=== PATIENT | female | born 1950 | race Caucasian/White ===

== ENCOUNTER 2016-06-16 07:32 | Day surgery (SDC) | payer MEDICARE, BC ==
[2016-06-16] MEDS ORDERED: BUPIVACAINE 0.25% W/EPI MPF 30ML VIAL IVP ONE (13:45)
[2016-06-16] MEDS ORDERED: HYDROCODONE/APAP 7.5/325MG TABLET PO ONE (13:45)
[2016-06-16] MEDS ORDERED: PROPOFOL 10 MG/ML VIAL IV ONE (15:07)
[2016-06-16] MEDS ORDERED: FENTANYL PF 100MCG/2ML VIAL IV ONE (15:07)
[2016-06-16] MEDS ORDERED: METOCLOPRAMIDE HCL 10 MG/2 ML VIAL IVP ONE (15:07)
[2016-06-16] MEDS ORDERED: MIDAZOLAM HCL 2MG/2ML VIAL IV ONE (15:07)
[2016-06-16] MEDS ORDERED: ONDANSETRON HCL IV 4 MG/2 ML VIAL IVP ONE (15:07)
[2016-06-16] MEDS ORDERED: HYDROMORPHONE HCL 2 MG/ML VIAL IV ONE (15:07)
[2016-06-16] MEDS ORDERED: LIDOCAINE 2% MDV (20MG/ML) 20ML VIAL IV ONE (15:07)
--- NOTE | 2016-06-17 16:30 | Operative Note ---
DATE OF SURGERY: 06/16/2016 REFERRING PHYSICIAN: Enzo Stone DO PREOPERATIVE DIAGNOSES: 1. Torn medial meniscus of the right knee. 2. Chondromalacia of the right knee. 3. Synovitis, right knee. POSTOPERATIVE DIAGNOSES: 1. Torn medial meniscus of the right knee. 2. Chondromalacia medial femoral condyle and patella, right knee. 3. Medial midpatellar plica and synovitis, right knee (2 compartments). DESCRIPTION: This 65-year-old female was taken to the operating room and placed in the supine position on the operating room table where general anesthesia was induced. The right lower extremity was elevated. It was prepped with Hibiclens and draped in the usual sterile fashion. After exsanguination, tourniquet inflated to 300 mmHg, and application of the arthroscopic knee landeros. An inferolateral portal was established with a 4 mm arthroscopic and initial evaluation of the joint demonstrated normal appearance of the suprapatellar pouch, but the patient did have grade 3 chondromalacia of the patella, the median ridge and medial facet being more effected with grade 2 changes noted in the lateral facet. The trochlea, however, appeared to be normal. There was a hypertrophic, fibrotic medial midpatellar plica, which was resected through an inferior medial portal. The medial compartment was entered, and a radial tear of the medial meniscus was present at about the 11 o'clock position, which extended to within 2-3 mm from the meniscal synovial junction and then extended in a horizontal cleavage component to about the 1:30 to 2 o'clock position. Utilizing the basket forceps and rotating shaver, we resected back to the apex of the tear and then tapered in each direction to stabilize the remaining meniscus. It was reprobed and confirmed to be stable. There was grade 2 chondromalacia noted throughout the entire weightbearing surface of the medial femoral condyle, and chondroplasty was performed because of loose, fragmented, unstable fragments of the articular cartilage there. The intercondylar notch was examined and found to be normal. The lateral compartment was entered, and probing of the lateral meniscus and articular cartilage of the lateral compartment did not reveal any pathology. There was, however, synovitis in the medial compartment and intercondylar notch as well. The joint was copiously irrigated and suctioned after performing synovectomy to remove inflammatory or chronic fibrosis of the synovium. The joint was copiously irrigated and suctioned. The instruments were removed, the portals infiltrated with 0.25% Marcaine with epinephrine, sterile dressings applied, tourniquet and knee landeros released, and the patient taken to the recovery room in satisfactory condition. GROSS PATHOLOGY: This patient demonstrated a complex tear of the posterior horn of the medial meniscus with grade 2 chondromalacia noted throughout the entire weightbearing surface of the medial femoral condyle and grade 3 changes of the medial facet and 2 changes of the lateral facet of the patella. A medial midpatellar plica and synovitis was also present. CC: DO AWILDA Chance
== END 2016-06-16 10:35 | disposition home or self-care (01) ==
LOC: SUR 07:32
PROVIDERS: ATTEND Orthopaedic Surgery
DX: M23.203 Derangement of unspecified medial meniscus due to old tear or injury, right knee (principal); M94.261 Chondromalacia, right knee; M65.861 Other synovitis and tenosynovitis, right lower leg; E11.9 Type 2 diabetes mellitus without complications; Z79.4 Long term (current) use of insulin
CPT/HCPCS: 36416; 82948; 93005; 93010; 29881; 29876; 01400; J2405; J3010; J1170; J2765

== ENCOUNTER 2016-07-25 09:06 | Day surgery (SDC) | payer MEDICARE, BC ==
[2016-07-25] MEDS ORDERED: PROPOFOL 10 MG/ML VIAL IV ONE (15:42)
[2016-07-25] MEDS ORDERED: FENTANYL PF 100MCG/2ML VIAL IV ONE (15:42)
[2016-07-25] MEDS ORDERED: LABETALOL HCL 5MG/ML, 20ML VIAL SIVP ONE (15:42)
--- NOTE | 2016-07-26 15:50 | Operative Note ---
DATE OF SURGERY: 07/25/2016 OPERATION: ESOPHAGOGASTRODUODENOSCOPY with multiple biopsies. INDICATION: Previous history of B-cell gastric lipoma (MALToma). The patient returns at this time for surveillance. Clinically she is doing fairly well. She is unable to take medications such as histamine blockers or proton pump inhibitors, as it causes chest pain. She also has acid reflux. Previous pathology failed to demonstrate intestinal metaplasia at the GE junction. ANESTHESIA: Intravenous sedation was administered by the department of anesthesiology and included Diprivan titrated to effect. PROCEDURE: Following informed consent from this alert individual, including a discussion of the risks and benefits of the procedure and an opportunity for the patient to ask questions, the patient was placed in the left lateral decubitus position. The Olympus [id number] video endoscope was inserted into the esophagus without resistance. The proximal esophagus had a normal appearance with normal folds and distensibility. The mid and distal esophagus likewise was free from changes. There was a small hiatal hernia noted which was free from abnormalities. The subdiaphragmatic stomach was entered and found to be erythematous. The antrum was most intensely erythematous with gastritis. No ulcerations were noted. There were no masses noted. The pylorus was patent. The duodenal bulb, sweep, and descending duodenum were examined in a serial fashion and found to be normal. The endoscope was then drawn back into the body of the stomach. Retroflexion accomplished following air insufflation again revealed some mild gastritis in the proximal stomach. The endoscope was then straightened. Multiple biopsies were first taken from the antrum of the stomach. A second set of biopsies was then taken from the gastric fundus and body. The endoscope was then withdrawn back through the esophagus and removed. The patient tolerated the procedure well and was returned to the recovery area in stable condition. IMPRESSION: 1. Small hiatal hernia. 2. Gastritis as described above. Biopsies taken. RECOMMENDATION: Further recommendations will be forthcoming pending results of pathology obtained today. Would recommend recheck endoscopy in 1 year's time for surveillance, which was recommended by Oncology previously. Followup will be with Dr. Gabriele Stone. As always, thank you for allowing me to participate in the care of your patient. Sterling Woodward DO CC: Dr. Gabriele [facility]
== END 2016-07-25 11:34 | disposition home or self-care (01) ==
LOC: HOP 09:06
PROVIDERS: ATTEND Internal Medicine Gastroenterology
DX: K29.50 Unspecified chronic gastritis without bleeding (principal); K44.9 Diaphragmatic hernia without obstruction or gangrene; Z85.72 Personal history of non-Hodgkin lymphomas; K22.70 Barrett's esophagus without dysplasia; E11.9 Type 2 diabetes mellitus without complications; Z79.4 Long term (current) use of insulin
CPT/HCPCS: 43239; 00740; 88305; J3010

== ENCOUNTER 2017-01-02 06:44 | Day surgery (SDC) | payer MEDICARE, BC ==
[2017-01-02] MEDS ORDERED: LIDOCAINE 2% MDV (20MG/ML) 20ML VIAL IV ONE (06:45)
[2017-01-02] MEDS ORDERED: SEVOFLURANE 250 ML INH ONE (06:45)
[2017-01-02] MEDS ORDERED: PROPOFOL 10 MG/ML VIAL IV ONE (06:45)
--- NOTE | 2017-01-02 15:01 | Operative Note ---
DATE OF SURGERY: 01/02/2017 PREOPERATIVE DIAGNOSIS: Postmenopausal bleeding. POSTOPERATIVE DIAGNOSIS: Postmenopausal bleeding. OPERATION: Diagnostic hysteroscopy and D&C with polyp removal. PHYSICIAN: Mary Cline DO Anesthesia: General. COMPLICATIONS: None. Estimated Blood Loss: Minimal. PROCEDURE: The patient was prepped for surgery and brought back to the operative suite. She was placed under general anesthesia. She was sterilely prepped and draped in the dorsal lithotomy position. A weighted speculum was placed in the vaginal vault. 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 The cervix was serially dilated to 18-Lithuanian. The hysteroscope was then placed. A small polyp was noted in the anterior aspect of the uterus. An incisor blade was placed through the scope. The polyp was shaved off. The hysteroscope was then removed. Curettings were obtained. The tenaculum was removed. No bleeding was noted. The patient was then awoken from general anesthesia and brought back to recovery room in satisfactory condition. AWILDA
== END 2017-01-02 09:33 | disposition home or self-care (01) ==
LOC: SUR 06:44
PROVIDERS: ATTEND Obstetrics & Gynecology
DX: N85.01 Benign endometrial hyperplasia (principal); E11.9 Type 2 diabetes mellitus without complications; Z79.4 Long term (current) use of insulin

== ENCOUNTER 2017-01-27 08:05 | Emergency (ER) | payer MEDICARE, BC ==
--- NOTE | 2017-01-27 08:18 | Emergency Department Record ---
History of Present Illness - General Chief complaint: Female Urogenital Problem Stated complaint: UTI Time Seen by Provider: 01/27/17 08:17 Source: Patient Mode of Arrival: Ambulatory Limitations: No limitations - History of Present Illness Initial comments: The patient is here due to a one day hx of dysuria. She denies any new pain, fever, chills, nausea, vomiting, or diarrhea. The patient states she has chronic abdominal pain and that is no different now. She states she is only here due to the burning with urination that is new. MD Complaint: Dysuria Onset/Timin -: Days(s) Severity scale (1-10): 10 Quality: Burning Consistency: Constant Improves with: None Worsens with: Urination Patient : No Associated Symptoms: Abdominal pain (Chronic per the patient.) - Related Data Previous Rx's Medication Instructions Recorded Phenazopyridine HCl [Pyridium] 100 mg PO TID #6 tablet 01/27/17 Sulfamethoxazole/Trimethoprim 1 tab PO BID #10 tab 01/27/17 [Bactrim Ds] Allergies Allergy/AdvReac Type Severity Reaction Status Date / Time acetaminophen [From Tylenol] AdvReac URINARY Verified 10/25/15 17:49 TRACT INFECTION acetazolamide AdvReac NAUSEA Verified 10/25/15 17:49 [From Diamox Sequels] amitriptyline HCl AdvReac PT UNSURE Verified 10/25/15 17:49 [From Elavil] OF REACTION amoxicillin trihydrate AdvReac URINARY Verified 10/25/15 17:49 [From Augmentin] TRACT INFECTION colloidal bismuth subcitrate AdvReac RAPID Verified 10/25/15 17:49 [From Pylera] HEART RATE cyclobenzaprine HCl AdvReac NAUSEA Verified 10/25/15 17:49 [From Flexeril] dicyclomine HCl [From Bentyl] AdvReac TACHYCARDIA Verified 10/25/15 17:49 gabapentin [From Neurontin] AdvReac NEUROTOXICI Verified 10/25/15 17:49 TY ibuprofen [From Motrin] AdvReac NAUSEA AND Verified 10/25/15 17:49 VOMITING lansoprazole [From Prevacid] AdvReac CHEST PAIN Verified 10/25/15 17:49 lisinopril AdvReac RAPID Verified 10/25/15 17:49 HEART RATE metronidazole [From Pylera] AdvReac RAPID Verified 10/25/15 17:49 HEART RATE nitrofurantoin AdvReac URINARY Verified 10/25/15 17:49 [From Macrobid] TRACT INFECTION nitrofurantoin AdvReac URINARY Verified 10/25/15 17:49 macrocrystalline TRACT [From Macrobid] INFECTION omeprazole [From Prilosec] AdvReac CHEST PAIN Verified 10/25/15 17:49 omeprazole magnesium AdvReac CHEST PAIN Verified 10/25/15 17:49 [From Prilosec] potassium clavulanate AdvReac URINARY Verified 10/25/15 17:49 [From Augmentin] TRACT INFECTION prednisone AdvReac BEHAVIORAL Verified 10/25/15 17:49 CHANGES psyllium AdvReac CHEST PAIN Verified 10/25/15 17:49 tetracycline HCl AdvReac RAPID Verified 10/25/15 17:49 [From Pylera] HEART RATE Travel Screening - Travel/Exposure Within Last 30 Days Have you traveled within the last 30 days?: No Review of Systems Constitutional: Denies: Chills, Fever, Malaise Eyes: Denies: Eye discharge ENT: Denies: Congestion Respiratory: Denies: Cough, Dyspnea Cardiovascular: Denies: Chest pain Past Medical History - SOCIAL HISTORY Smoking Status: Former smoker Alcohol Use: None Drug Use: None - RESPIRATORY Hx Respiratory Disorders: Yes Hx Sleep Apnea: Yes Hx of CPAP: No Comment:: sarcoidosis - CARDIOVASCULAR Hx Cardio Disorders: Yes Hx Chest Pain: Yes (with "alot of medications"-sees Dr Alexander) Hx Edema: Yes (both ankles, rt worse) Hx Irregular Heartbeat: Yes ("distolic dysfunction") - NEURO Hx Neuro Disorders: Yes 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) Hx Headaches: Yes (daily rest helps) Hx Neuropathy: Yes (legs r/t dm) - GI Hx GI Disorders: Yes Hx Nausea/Vomiting: Yes (denies vomiting with this) Hx Wt Loss/Wt Gain: Yes (gain 20lbs since January 2016) Comment:: Hx Barretts/ had gastric lymphoma 2007 - Hx Genitourinary Disorders: Yes Hx Bladder Problem: Yes (urinary frequency) - ENDOCRINE Hx Endocrine Disorders: Yes Hx Diabetes: Yes (since 1985) Comment:: last accucheck 119 today - MUSCULOSKELETAL Hx Musculoskeletal Disorders: Yes Hx Arthritis: Yes (back) - PSYCH Hx Psych Problems: Yes Hx Depression: Yes (possibly) - HEMATOLOGY/ONCOLOGY Hx Hematology/Oncology Disorders: Yes Hx Cancer: Yes (gastric lymphoma) Hx Radiation Therapy: Yes (2007) Comment:: remission since 2007 Family Medical History Any Significant Family History?: Yes Hx Cancer: Brother/Sister Hx Diabetes: Father Hx Heart Disease: Mother Hx HTN: Mother Hx Seizures: Children *Seizure Comment: daughter Physical Exam - General General Appearance: Alert, Oriented x3, Cooperative, No acute distress - Head Head exam: Atraumatic, Normocephalic, Normal inspection - Eye Eye exam: Normal appearance, PERRL - Neck Neck exam: Normal inspection, Full ROM. negative: Tenderness - Respiratory Respiratory exam: Normal lung sounds bilaterally. negative: Respiratory distress - Cardiovascular Cardiovascular Exam: Regular rate, Normal rhythm, Normal heart sounds - GI/Abdominal GI/Abdominal exam: Soft, Normal bowel sounds, Tenderness (There is mild lower abdominal tenderness but the patient and daughter both state that is normal for her.). negative: Guarding, Hernia, Rebound, Rigid - Extremities Extremities exam: Normal inspection, Full ROM, Normal capillary refill. negative: Tenderness Course Vital Signs 01/27/17 01/27/17 08:07 08:16 Temperature 97.5 F L Pulse Rate [ 88 Pulse Ox Probe] Respiratory 16 Rate Blood Pressure 125/57 [Right Arm] Pulse Ox 92 L - Reevaluation(s) Reevaluation #1: The patient is doing well. I did discuss the issues with her chronic abdominal pain and the fact she feels it may be slightly worse now. Due to that fact I did recommend an IV, lab work and a CT of her abdomen. She is refusing those tests and only wants the Abx for the UTI. I explained to her that she could have a significant intra-abdominal process which could lead to a surgical abdomen, disability, and chronic pain. By NOT doing the testing we could NOT be held liable for not diagnosing her condition. She presently has proper decision making capacity and is persistently refusing the testing. She states she will return if the Abx does not improve her condition. 01/27/17 08:54 Disposition Disposition: Discharge Clinical Impression: Cystitis Disposition: Home, Self-Care Condition: (2) Stable Instructions: Urinary Tract Infection in Women (ED) Additional Instructions: Please take the Bactrim and Pyridium as directed. Please see your PCP if not better in 3 days. Return to the ER for any increasing pain, fever, or vomiting. Prescriptions: Phenazopyridine HCl [Pyridium] 100 mg PO TID #6 tablet Sulfamethoxazole/Trimethoprim [Bactrim Ds] 1 tab PO BID #10 tab Forms: Patient Portal Access Time of Disposition: 08:51 Quality - Quality Measures Quality Measures: N/A - Blood Pressure Screening View Details: Yes Does Patient Have Any of the Following: No Blood Pressure Classification: Pre-Hypertensive BP Reading Systolic Measurement: 125 Diastolic Measurement: 57 Screening for High Blood Pressure: < Pre-Hypertensive BP, F/U Documented > [ [id number]] Pre-Hypertensive Follow-up Interventions: Referral to alternative/primary care provider.
[2017-01-27 08:24] LABS: URINE BILIRUBIN NEGATIVE (NEGATIVE); URINE BLOOD TRACE-I (NEGATIVE); URINE COLOR YELLOW; URINE GLUCOSE (UA) NEGATIVE (NEGATIVE); URINE KETONE NEGATIVE (NEGATIVE); URINE LEUKOCYTE ESTERASE SMALL (NEGATIVE); URINE NITRITE NEGATIVE (NEGATIVE); URINE PROTEIN TRACE (NEGATIVE); URINE UROBILINOGEN 0.2 E.U./dL (0.20 - 1.00)
[2017-01-27 08:33] LABS: URINE APPEARANCE SL CLOUDY
[2017-01-27 08:34] LABS: URINE SQUAMOUS EPITHELIAL CELL 0 - 2 /hpf; URINE WBC 16 - 20 (0-2/hpf)
[2017-01-27 08:35] LABS: URINE AMORPHOUS SEDIMENT 1+; URINE BACTERIA 2+
== END 2017-01-27 08:57 | disposition home or self-care (01) ==
LOC: ER 08:05
DX: N30.90 Cystitis, unspecified without hematuria (principal)
CPT/HCPCS: 81001; 99282

== ENCOUNTER 2017-08-07 08:38 | Day surgery (SDC) | payer MEDICARE, BC ==
[2017-08-07] MEDS ORDERED: PROPOFOL 10 MG/ML VIAL IV ONE (08:39)
[2017-08-07] MEDS ORDERED: LIDOCAINE 2% MDV (20MG/ML) 20ML VIAL IV ONE (08:39)
--- NOTE | 2017-08-07 14:40 | Operative Note ---
DATE OF SURGERY: 08/07/2017 OPERATION: COLONOSCOPY to the cecum. INDICATION: Colorectal cancer screening. ANESTHESIA: Intravenous sedation was administered by the department of anesthesiology and included Diprivan titrated to effect. PROCEDURE: Following informed consent from this alert individual including a discussion of the risks and benefits of the procedure and an opportunity for the patient to ask questions, the patient was in the left lateral decubitus position. A digital rectal examination was performed. No abnormalities were noted. Following this, the Olympus [id number] video colonoscope was inserted into the rectum without resistance. The rectal mucosa had a normal appearance with normal folds and distensibility. The colonoscope was advanced up through the colon to the level of the cecum without much difficulty. Throughout the bowel the mucosa appeared normal, the folds were normal, and the bowel was fairly well distensible. The cecum was defined by noting the appendiceal orifice and ileocecal valve. Retroflexion in the cecum was endoscopically unremarkable. The colon preparation was good. From the base of the cecum, the colonoscope was then withdrawn back. No changes were noted except for the sigmoid colon where a few small diverticula were noted. No other abnormalities were detected. Retroflexion in the rectum was endoscopically unremarkable. The endoscope was straightened and removed. The patient tolerated the procedure well and was returned to the recovery area in stable condition. IMPRESSION: 1. Mild sigmoid diverticulosis. 2. Otherwise unremarkable colonoscopy to the cecum. RECOMMENDATIONS: The patient was advised to have recheck colonoscopy in 10 years' time or sooner should problems arise. Followup will be with Dr. Burnett and Dr. Stone. As always, thank you for allowing me to participate in the care of your patient. CC: DO AWILDA Frederick
--- NOTE | 2017-08-07 14:40 | Operative Note ---
DATE OF SURGERY: 08/07/2017 OPERATION: ESOPHAGOGASTRODUODENOSCOPY with multiple biopsies. INDICATION: History of gastric MALTtoma. The patient returns at this time for surveillance. ANESTHESIA: Intravenous sedation was administered by the department of anesthesiology and included Diprivan titrated to effect. PROCEDURE: Following informed consent from this alert individual, including a discussion of the risks and benefits of the procedure and an opportunity for the patient to ask questions, the patient was in the left lateral decubitus position. The Olympus [id number] video endoscope was inserted into the esophagus without resistance. The proximal esophagus had a normal appearance with normal folds and distensibility. The mid and distal esophagus likewise was free from changes. There was a small sliding-type hiatal hernia noted but no mucosal abnormalities detected. The stomach was entered. There was diffuse mild gastritis noted but no ulcers, erosions, or raised mucosa was appreciated. Multiple biopsies were taken from throughout the stomach, both the antrum and the proximal stomach. The pylorus was symmetrical and patent. The duodenal bulb, sweep and descending duodenum were examined in a serial fashion and found to be normal. The endoscope was then withdrawn back into the body of the stomach where retroflexion accomplished following air insufflation failed to demonstrate any additional changes. The endoscope was then straightened and withdrawn through a normal esophagus and removed from the patient. She tolerated the procedure well and was returned to the recovery area in stable condition. IMPRESSION: 1. Diffuse mild gastritis, biopsies taken. 2. Small hiatal hernia. RECOMMENDATION: Further recommendations will be forthcoming pending results of biopsy obtained today. Followup will also be with Dr. Burnett and Dr. Garcia. As always, thank you for allowing me to participate in the care of your patient. CC: Dr. Lex Stone, DO [facility]
== END 2017-08-07 10:38 | disposition home or self-care (01) ==
LOC: HOP 08:38
PROVIDERS: ATTEND Internal Medicine Gastroenterology
DX: Z12.11 Encounter for screening for malignant neoplasm of colon (principal); K57.30 Diverticulosis of large intestine without perforation or abscess without bleeding; K29.70 Gastritis, unspecified, without bleeding; E11.9 Type 2 diabetes mellitus without complications; Z79.4 Long term (current) use of insulin; Z85.028 Personal history of other malignant neoplasm of stomach; K44.9 Diaphragmatic hernia without obstruction or gangrene
CPT/HCPCS: 00813; 43235; G0121

== ENCOUNTER 2019-03-21 07:38 | Day surgery (SDC) | payer MEDICARE, BC ==
[2019-03-21] MEDS ORDERED: PROPOFOL 10 MG/ML VIAL IV ONE (07:39)
[2019-03-21] MEDS ORDERED: LIDOCAINE 2% MDV (20MG/ML) 20ML VIAL IV ONE (07:39)
[2019-03-21] MEDS ORDERED: 0.9 % SODIUM CHLORIDE 1000ML 500 ML IV ONE (08:26)
[2019-03-21] MEDS ORDERED: LIDOCAINE 2% MDV (20MG/ML) 20ML VIAL INJ ONE (09:29)
[2019-03-21] MEDS ORDERED: TETRACAINE HCL 0.5% OPTH 2ML SOLU OPTH ONE (09:29)
[2019-03-21] MEDS ORDERED: LIDOCAINE 1% MPF 100MG/10ML STERILE-PAK AMPULE SQ ONE (09:30)
[2019-03-21] MEDS ORDERED: TIMOLOL MALEATE 0.5% 5ML BTL OPTH ONE (09:30)
[2019-03-21] MEDS ORDERED: EPINEPHRINE 1 MG/ML AMPUL IO ONE (09:30)
[2019-03-21] MEDS ORDERED: BRIMONIDINE TARTRATE 0.2% OPTHALMIC DROPS OP ONE (09:30)
[2019-03-21] MEDS ORDERED: NEOM/BACI/POLY/HC 3.5 GM OPTH OINT OPTH ONE (09:30)
[2019-03-21] MEDS ORDERED: TETRACAINE HCL 0.5% 15 ML OPTH BTL OPTH ONE (09:31)
--- NOTE | 2019-03-22 09:23 | OP NOTE CHAMES ---
DATE OF PROCEDURE: 03/21/2019 PREOPERATIVE DIAGNOSIS: Nuclear sclerotic and cortical cataract, right eye. POSTOPERATIVE DIAGNOSIS: Nuclear sclerotic and cortical cataract, right eye. OPERATION: Phacoemulsification of cataractous lens with implantation of intraocular lens. LENS IMPLANT USED: Sanchez & Sanchez Model PCB00 + 21.5 diopters. COMPLICATIONS: None. PROCEDURE IN DETAIL: Following a retrobulbar and facial block, the patient was prepped and draped in the usual fashion for eye surgery. A lid speculum was placed in the right eye after which a 2.4 mm tunnel wound was placed at the temporal limbus and dissected into clear cornea. A paracentesis was placed at 2 oclock hours to the left and right of the initial incision and the chamber deepened with Viscoelastic. The keratome was then used to enter the anterior chamber after which the continuous circular capsulorrhexis was accomplished without difficulty using a bent needle and a Utrata forceps. Hydrodissection and hydrodelineation of the lens was performed after which the nucleus of the lens was removed using the Phaco handpiece in the [id number] technique. The residual cortical material was irrigated and aspirated from the eye after which the bag and chamber were re-examined. The bag was re-inflated with Viscoelastic and the intraocular lens injected into the capsular bag where it centered well. The Viscoelastic was then copiously irrigated and aspirated from the eye after which the temporal tunnel wound and paracentesis were hydrated and the wounds were examined. They were noted to be watertight. The lid speculum was removed from the eye and the eye patched and shielded. The patient was transferred to the recovery room in satisfactory condition and given an appointment to be reexamined in the clinic later today or as directed by Dr. Felix. JOB NUMBER: [id number] [facility]
== END 2019-03-21 10:19 | disposition home or self-care (01) ==
LOC: SUR 07:38
PROVIDERS: ATTEND Ophthalmology
DX: H25.11 Age-related nuclear cataract, right eye (principal); E11.9 Type 2 diabetes mellitus without complications; Z79.4 Long term (current) use of insulin; I50.9 Heart failure, unspecified
CPT/HCPCS: J0171; J3490; J7030

== ENCOUNTER 2019-04-04 07:26 | Day surgery (SDC) | payer MEDICARE, BC ==
[2019-04-04] MEDS ORDERED: PROPOFOL 10 MG/ML VIAL IV ONE (07:27)
[2019-04-04] MEDS ORDERED: LIDOCAINE 2% MDV (20MG/ML) 20ML VIAL IV ONE (07:27)
[2019-04-04] MEDS ORDERED: 0.9 % SODIUM CHLORIDE 1000ML 1,000 ML IV ONE (07:52)
[2019-04-04] MEDS ORDERED: NEOM/BACI/POLY/HC 3.5 GM OPTH OINT OPTH ONE (09:18)
[2019-04-04] MEDS ORDERED: TETRACAINE HCL 0.5% OPTH 2ML SOLU OPTH ONE (09:18)
[2019-04-04] MEDS ORDERED: EPINEPHRINE 1 MG/ML AMPUL IO ONE (09:18)
[2019-04-04] MEDS ORDERED: BRIMONIDINE TARTRATE 0.2% OPTHALMIC DROPS OP ONE (09:18)
[2019-04-04] MEDS ORDERED: TIMOLOL MALEATE 0.5% 5ML BTL OPTH ONE (09:18)
[2019-04-04] MEDS ORDERED: LIDOCAINE 2% MDV (20MG/ML) 20ML VIAL INJ ONE (09:19)
[2019-04-04] MEDS ORDERED: CIPROFLOXACIN HCL 0.0015 GM, PHENYLEPHRINE HCL 0.05 GM, KETOROLAC TROMETHAMINE 0.000625 GM MC ONE ×5 (14:30)
--- NOTE | 2019-04-05 07:11 | OP NOTE CHAMES ---
DATE OF PROCEDURE: 04/04/2019 PREOPERATIVE DIAGNOSIS: Nuclear sclerotic cataract, left eye. POSTOPERATIVE DIAGNOSIS: Nuclear sclerotic cataract, left eye. OPERATION: Phacoemulsification of cataractous lens with implantation of intraocular lens. LENS IMPLANT USED: Sanchez & Sanchez Model PCB00 + 21.5 diopters. COMPLICATIONS: None. PROCEDURE IN DETAIL: Following a retrobulbar and facial block, the patient was prepped and draped in the usual fashion for eye surgery. A lid speculum was placed in the left eye after which a 2.4 mm tunnel wound was placed at the temporal limbus and dissected into clear cornea. A paracentesis was placed at 2 oclock hours to the left and right of the initial incision and the chamber deepened with Viscoelastic. The keratome was then used to enter the anterior chamber after which the continuous circular capsulorrhexis was accomplished without difficulty using a bent needle and a Utrata forceps. Hydrodissection and hydrodelineation of the lens was performed after which the nucleus of the lens was removed using the Phaco handpiece in the [id number] technique. The residual cortical material was irrigated and aspirated from the eye after which the bag and chamber were re-examined. The bag was re-inflated with Viscoelastic and the intraocular lens injected into the capsular bag where it centered well. The Viscoelastic was then copiously irrigated and aspirated from the eye after which the temporal tunnel wound and paracentesis were hydrated and the wounds were examined. They were noted to be watertight. The lid speculum was removed from the eye and the eye patched and shielded. The patient was transferred to the recovery room in satisfactory condition and given an appointment to be reexamined in the clinic later today or as directed by Dr. Felix. JOB NUMBER: [id number] [facility]
== END 2019-04-04 10:00 | disposition home or self-care (01) ==
LOC: SUR 07:26
PROVIDERS: ATTEND Ophthalmology
DX: H25.12 Age-related nuclear cataract, left eye (principal); E11.9 Type 2 diabetes mellitus without complications; Z79.4 Long term (current) use of insulin; I50.9 Heart failure, unspecified; I25.10 Atherosclerotic heart disease of native coronary artery without angina pectoris
CPT/HCPCS: J0171; J7030

== ENCOUNTER 2019-05-05 14:04 | Emergency (ER) | payer MEDICARE, BC ==
[2019-05-05] MEDS ORDERED: 0.9 % SODIUM CHLORIDE 1,000 ML BAG IV ONE (14:32)
--- NOTE | 2019-05-05 14:36 | Emergency Department Record ---
History of Present Illness - General Chief Complaint: Abdominal Pain Stated Complaint: ABD PAIN/CONSTIPATION Time Seen by Provider: 05/05/19 14:26 Source: Patient Mode of Arrival: Ambulatory Limitations: No limitations - History of Present Illness Initial Comments: The patient is here due to diffuse abdominal pain with constipation for almost 2 weeks. The pain is all over. The patient denies any fever, chills, nausea or vomiting. She did try an enema with no results. 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 MD Complaint: Abdominal pain Onset/Timin -: Days(s) Location: Diffuse Radiation: None Migration to: No migration Severity scale (1-10): 8 Quality: Fullness Consistency: Constant Improves With: Nothing Worsens With: Nothing Associated Symptoms: Constipation - Related Data Patient : No Hx Age of Menopause: 52 Home Medications Medication Instructions Recorded Confirmed Last Taken Vit C/Vit E AC/Lut/Copper/Zinc 1 tab PO DAILY 05/05/19 05/05/19 Unknown [PreserVision Lutein Softgel] Vitamin B Complex/Folic Acid [B 0.4 mg PO DAILY 05/05/19 05/05/19 Unknown Complex Formula #1 Tablet] Allergies Allergy/AdvReac Type Severity Reaction Status Date / Time acetaminophen [From Tylenol] AdvReac URINARY Verified 05/05/19 14:22 TRACT INFECTION acetazolamide AdvReac NAUSEA Verified 05/05/19 14:22 [From Diamox Sequels] amitriptyline HCl AdvReac PT UNSURE Verified 05/05/19 14:22 [From Elavil] OF REACTION amoxicillin trihydrate AdvReac URINARY Verified 05/05/19 14:22 [From Augmentin] TRACT INFECTION colloidal bismuth subcitrate AdvReac RAPID Verified 05/05/19 14:22 [From Pylera] HEART RATE cyclobenzaprine HCl AdvReac NAUSEA Verified 05/05/19 14:22 [From Flexeril] dicyclomine HCl [From Bentyl] AdvReac TACHYCARDIA Verified 05/05/19 14:22 gabapentin [From Neurontin] AdvReac NEUROTOXICI Verified 05/05/19 14:22 TY ibuprofen [From Motrin] AdvReac NAUSEA AND Verified 05/05/19 14:22 VOMITING lansoprazole [From Prevacid] AdvReac CHEST PAIN Verified 05/05/19 14:22 lisinopril AdvReac RAPID Verified 05/05/19 14:22 HEART RATE metronidazole [From Pylera] AdvReac RAPID Verified 05/05/19 14:22 HEART RATE nitrofurantoin AdvReac URINARY Verified 05/05/19 14:22 [From Macrobid] TRACT INFECTION nitrofurantoin AdvReac URINARY Verified 05/05/19 14:22 macrocrystalline TRACT [From Macrobid] INFECTION omeprazole [From Prilosec] AdvReac CHEST PAIN Verified 05/05/19 14:22 omeprazole magnesium AdvReac CHEST PAIN Verified 05/05/19 14:22 [From Prilosec] potassium clavulanate AdvReac URINARY Verified 05/05/19 14:22 [From Augmentin] TRACT INFECTION prednisone AdvReac BEHAVIORAL Verified 05/05/19 14:22 CHANGES psyllium AdvReac CHEST PAIN Verified 05/05/19 14:22 tetracycline HCl AdvReac RAPID Verified 05/05/19 14:22 [From Pylera] HEART RATE Travel/Exposure Screening - Travel/Exposure Within Last 30 Days Have you traveled within the last 30 days?: No - Additonal Travel/Exposure Details Have you been exposed to anyone with a communicable illness?: No Review of Systems Constitutional: Denies: Chills, Fever Eyes: Denies: Eye discharge ENT: Denies: Congestion Respiratory: Denies: Cough, Dyspnea Cardiovascular: Denies: Chest pain Endocrine: Denies: Fatigue Gastrointestinal: Reports: Abdominal pain. Denies: Nausea Genitourinary: Denies: Dysuria Musculoskeletal: Denies: Arthralgia Skin: Denies: Bruising Past Medical History - SOCIAL HISTORY Smoking Status: Former smoker - RESPIRATORY Hx Respiratory Disorders: Yes Hx Sleep Apnea: Yes Hx of CPAP: No Comment:: sarcoidosis - CARDIOVASCULAR Hx Cardio Disorders: Yes Hx CHF: Yes ("DIASTOLIC DYSFUNCTION") Hx Edema: Yes (FEET AND ANKLES AT TIMES) Hx Irregular Heartbeat: No - NEURO Hx Neuro Disorders: Yes Hx Brain Tumor: Yes (PSEUDO TUMOR ?) Hx Dizziness: Yes (AT TIMES) Hx Headaches: Yes (DAILY) Hx Neuropathy: Yes (LE'S) - GI Hx GI Disorders: Yes Hx Abdominal Pain: Yes Hx Reflux: Yes (USES MYLANTA AND/OR BAKING SODA) Hx Nausea/Vomiting: No (DENIES) Hx Wt Loss/Wt Gain: Yes (GAINS WEIGHT EASILY) Comment:: Hx Barretts/ had gastric lymphoma 2007 - Hx Genitourinary Disorders: Yes Hx UTI: Yes (HX OF) - ENDOCRINE Hx Endocrine Disorders: Yes Hx Diabetes: Yes (DX'D 1985) Comment:: BLOOD SUGARS 90-120 FASTINGS - MUSCULOSKELETAL Hx Musculoskeletal Disorders: Yes Hx Arthritis: Yes Hx Fibromyalgia: Yes - PSYCH Hx Psych Problems: No Hx Depression: (DENIES) - HEMATOLOGY/ONCOLOGY Hx Hematology/Oncology Disorders: Yes Hx Cancer: Yes (gastric lymphoma) Hx Radiation Therapy: Yes (2007) Comment:: remission since 2007 Family Medical History Any Significant Family History?: Yes Hx Cancer: Brother/Sister Hx Diabetes: Father Hx Heart Disease: Mother Hx HTN: Mother Hx Seizures: Children *Seizure Comment: daughter Physical Exam - General General Appearance: Alert, Oriented x3, Cooperative, No acute distress - Head Head exam: Atraumatic, Normocephalic - Eye Eye exam: Normal appearance - ENT Throat exam: Normal inspection. negative: Tonsillar erythema, Tonsillar exudate - Neck Neck exam: Normal inspection, Full ROM. negative: Tenderness - Respiratory Respiratory exam: Normal lung sounds bilaterally. negative: Respiratory distress - Cardiovascular Cardiovascular Exam: Regular rate, Normal rhythm, Normal heart sounds - GI/Abdominal GI/Abdominal exam: Soft, Normal bowel sounds, Tenderness (There is diffuse mild upper abdominal tenderness.). negative: Rebound, Rigid - Extremities Extremities exam: Normal inspection, Full ROM, Normal capillary refill. negative: Tenderness Course Vital Signs 05/05/19 14:25 Temperature 98.0 F Pulse Rate [ 99 H Pulse Ox Probe] Respiratory 20 Rate Blood Pressure 163/57 [Left Arm] Pulse Ox 94 L - Reevaluation(s) Reevaluation #1: The patient is doing better at this time and did have some stool output with the enema. She is having no nausea or vomiting. On exam her abdomen is soft with mild diffuse upper abdominal tenderness. I did discuss the lab and CT reports that basically do not demonstrate any reason for the pain. The CT is basically normal at this time along with the lab work. The patient does have an appointment with Dr. Woodward (GI) in the morning and is encouraged to keep it. I did offer to give the patient some IV pain medicine like Toradol or Ofirmiv but she refused and states pain medicines do not agree with her. We will give her a bottle of Mg Citrate for home and she is to drink it tonight for the laxative effect. 05/05/19 17:14 Medical Decision Making - Data Complexity MDM Data: Labs Ordered and/or Reviewed, X-Ray Ordered and/or Reviewed - Lab Data Result diagrams: 05/05/19 15:00 05/05/19 15:00 - Radiology Data Radiology results: Report reviewed (CT: neg for any acute changes. Possible wall thickening vs underdistension of the colon, Rec Colonoscopy.) Disposition Disposition: Discharge Clinical Impression: Abdominal pain Qualifiers: Abdominal location: upper abdomen, unspecified Qualified Code(s): R10.10 - Upper abdominal pain, unspecified Disposition: Home, Self-Care Condition: (2) Stable Instructions: Abdominal Pain (ED) Additional Instructions: Please use your home pain medicines as needed and please drink the Mg Citrate tonight as directed. Please keep your appointment with Dr. Woodward for the morning. Return to the ER sooner for any worsening issues. Forms: Patient Portal Access Time of Disposition: 17:19 Quality - Quality Measures Quality Measures: N/A - Blood Pressure Screening View Details: Yes Does Patient Have Any of the Following: No Blood Pressure Classification: Pre-Hypertensive BP Reading Systolic Measurement: 123 Diastolic Measurement: 58 Screening for High Blood Pressure: < Pre-Hypertensive BP, F/U Documented > [[id number]] Pre-Hypertensive Follow-up Interventions: Referral to alternative/primary care provider.
[2019-05-05 15:10] LABS: ABSOLUTE NEUTROPHIL COUNT 4.33; BASO % 0.5 % (0-6); EOS % 2.1 % (0-6); HEMOGLOBIN 13.5 gm/dl (11.6-16.0); LYMPH % 25.8 % (16-45); MEAN CELL VOLUME 98.9 fl (81-97); MEAN CORPUSCULAR HGB CONC 31.4 g/dl (32-36); MEAN PLATELET VOLUME 10.8 fl (7.4-10.4); MONO % 5.6 % (0-9); PLATELET COUNT 250 K/uL (130-400); RED BLOOD COUNT 4.35 M/uL (3.80-5.40); RED CELL DISTRIBUTION WIDTH 13.4 % (11.5-14.5); WHITE BLOOD COUNT W/O DIFF 6.6 K/uL (4.2-12.2)
[2019-05-05 15:24] LABS: BLOOD UREA NITROGEN 12 mg/dL (8-23); CREATININE 0.6 mg/dL (0.5-0.9); EST GLOMERULAR FILTRATION RATE > 60 mL/min; LIPASE 13 U/L (13-60); TOTAL PROTEIN 7.1 g/dL (6.6-8.7)
[2019-05-05 15:26] LABS: GLUCOSE,RANDOM 178 mg/dL (74-109)
[2019-05-05 15:29] LABS: ALBUMIN 3.8 g/dL (4.0-5.0); ALKALINE PHOSPHATASE 114 U/L (35-104); ALT/SGPT 12 U/L (<33); AST/SGOT 16 U/L (10.0-35.0)
[2019-05-05 15:31] LABS: BILIRUBIN,DIRECT < 0.2 mg/dL (0-0.3)
--- NOTE | 2019-05-05 16:54 | CT SCAN REPORT ---
EXAMINATION: CT Abdomen and Pelvis with IV Contrast EXAM DATE: 05/05/2019 4:21 PM TECHNIQUE: CT imaging of the abdomen and pelvis was performed with intravenous contrast. Coronal and sagittal images were reconstructed. IV Contrast: The amount and type of contrast are recorded in the medical record. INDICATION: Upper AP COMPARISON: AP CT 06/07/2018 ENCOUNTER: Not applicable CT ABDOMEN AND PELVIS FINDINGS: Lung Bases: Included extent of the lung bases are clear. Hepatobiliary: The liver has a normal size with a smooth surface. The hepatic and portal veins appear patent. The gallbladder is absent. There is no biliary dilatation. Pancreas: The pancreas is normal. Spleen: The spleen is not enlarged. Adrenals: The adrenal glands are normal. Kidneys, Ureters, & Bladder: Both kidneys have a normal size and there is no hydronephrosis. Both ur eters have a normal caliber and the urinary bladder is unremarkable. Gastrointestinal: Small hiatal hernia. No bowel obstruction. Normal appendix. Wall thickening versus nondistention transverse through rectosigmoid colon. Follow-up colonoscopy as clinically directed. Reproductive Organs: Stable 3 cm hypodensity left adnexa. Lymphatic System: There is no adenopathy within the abdomen or pelvis. Vasculature: Normal caliber abdominal aorta. Peritoneum: No free fluid, free air, or inflammation Abdominal Wall & Musculoskeletal: No suspicious bone lesions. Degenerative change LS-spine. IMPRESSION: 1. Small hiatal hernia 2. Wall thickening versus nondistention transverse through rectosigmoid colon. Follow-up colonoscopy as clinically directed 3. Stable 3 cm hypodensity left adnexa 4. Cholecystectomy Dictated by: Moises Parikh MD on 05/05/2019 4:44 PM. .
[2019-05-05] MEDS ORDERED: MAGNESIUM CITRATE 296 ML BTL PO ONE (17:17)
== END 2019-05-05 17:39 | disposition home or self-care (01) ==
LOC: ER 14:04
DX: R10.10 Upper abdominal pain, unspecified (principal); E11.9 Type 2 diabetes mellitus without complications; I50.9 Heart failure, unspecified; Z87.891 Personal history of nicotine dependence
CPT/HCPCS: 74177; 80048; 80076; 83690; 85025; 99284; J7030